=== PATIENT | male | born 1965 | race Caucasian/White ===

== ENCOUNTER → 2017-01-13 | Outpatient (CLI) | payer MEDICAID ==
[~2017-01-13] MED LIST: GLIP10TA10 PO; HYDR-519 PO; IBUP-1636 PO; METF850T2 PO; TRAM50TA73 PO
== END | disposition home or self-care (01) ==
LOC: US 08:38
PROVIDERS: ATTEND Nurse Practitioner Psychiatric/Mental Health
DX: S76.911A Strain of unspecified muscles, fascia and tendons at thigh level, right thigh, initial encounter (principal); S70.11XA Contusion of right thigh, initial encounter; X58.XXXA Exposure to other specified factors, initial encounter; Y93.89 Activity, other specified; Y92.89 Other specified places as the place of occurrence of the external cause; Y99.8 Other external cause status
CPT/HCPCS: 76881